=== PATIENT | male | born 1940 | race African-American/Black ===

== ENCOUNTER 2016-07-03 18:21 | Observation (INO) | payer MEDICARE ==
[~2016-07-03 18:21] MED LIST: ACET500CAP PO; AMB5 PO; ASAB PO; B121000P IM; BANOPHEN25 MG PO; BEN25 PO; BENADRYL 50 MG50 MG PO; BRILINTA90 MG PO; CALTRA600D PO; CARASPUDL PO; CEFT5 PO; COREG6 PO; COSOPT OPH; FERROUS SULF325 M1 PO; FOSAMAX70 MG PO; GAVISCO2 OR; GAVISCO2 PO; L20 PO; LIPITOR10 PO; LIPITOR20 PO; LIPITOR40 PO; LOP25 PO; NIFEDIAC CC60 MG PO; NORV10 PO; OS500+D PO; PLAVIX PO; PRILO PO; PROLIA60 MG/1 ML SC; PROSCAR5 PO; REQUIP25 PO; REQUIP5 PO; SUCR PO; T PO; TRAVATAN OPH; TRAVATAN Z0.004 % OPH; VALTREX1 GM PO; VITAMIN D1000 UNI1 PO; VITAMIN D31000 UNIT PO; ZOCOR40 PO; [UNRECOGNIZED DRUG - OTHER] IM
[2016-07-03] MEDS ORDERED: COREG3 PO (22:25)
[2016-07-03] MEDS ORDERED: ASAB PO (22:26)
[2016-07-03] MEDS ORDERED: ACET500CAP PO (22:27)
[2016-07-04] MEDS ORDERED: PLAVIX PO (04:34)
[2016-07-04] MEDS ORDERED: ASAB PO (04:34)
[2016-07-04] MEDS ORDERED: COREG3 PO (04:34)
[2016-07-04] MEDS ORDERED: ACET500CAP PO (04:34)
[2016-07-04] MEDS ORDERED: OS500+D PO (04:35)
[2016-07-04] MEDS ORDERED: VITAMIN D31000 UNIT PO (04:35)
[2016-07-04] MEDS ORDERED: LIPITOR20 PO (04:35)
[2016-07-04] MEDS ORDERED: BEN25 PO (04:36)
[2016-07-04] MEDS ORDERED: L20 PO (04:36)
[2016-07-04] MEDS ORDERED: PROSCAR5 PO (04:36)
[2016-07-04] MEDS ORDERED: REQUIP5 PO (04:36)
[2016-07-04] MEDS ORDERED: COSOPT OPH (04:37)
[2016-07-04] MEDS ORDERED: PROLIA60 MG/1 ML SC (04:37)
[2016-07-04] MEDS ORDERED: TRAVATAN Z 0.004% OPH (04:37)
[2016-07-04] MEDS ORDERED: ACT300 PO (04:38)
[2016-07-04] MEDS ORDERED: PRIN5 PO (04:38)
[2016-07-04] MEDS ORDERED: GAVISCO2 PO (04:38)
[2016-07-04] MEDS ORDERED: KDUR10 PO (04:39)
[2016-07-04] MEDS ORDERED: CYANO1000T PO (04:39)
[2016-07-04] MEDS ORDERED: SUCR PO (06:45)
[2016-07-04] MEDS ORDERED: PCET PO (10:23)
== END 2016-07-04 11:49 | disposition home or self-care (01) ==
LOC: 2SO 18:21
DX: I73.9 Peripheral vascular disease, unspecified (principal); Z91.040 Latex allergy status; Z88.8 Allergy status to other drugs, medicaments and biological substances; Z79.82 Long term (current) use of aspirin; Z79.899 Other long term (current) drug therapy; Z79.52 Long term (current) use of systemic steroids
CPT/HCPCS: 97161-GP; A9270-GY; G0378; G8978-CJ-GP; G8979-CJ-GP; G8980-CJ-GP